=== PATIENT | female | born 1995 | race Caucasian/White ===

== ENCOUNTER → 2022-05-05 | Outpatient (CLI) | payer OTHER | LOC: COL.RAD 08:15 | DX: Z36.87 Encounter for antenatal screening for uncertain dates (principal); R10.13 Epigastric pain; R11.0 Nausea ==

== ENCOUNTER → 2022-07-01 | Outpatient (CLI) | payer OTHER | LOC: COL.RAD 11:08 | DX: O34.82 Maternal care for other abnormalities of pelvic organs, second trimester (principal); Z3A.20 20 weeks gestation of pregnancy ==